=== PATIENT | male | born 1950 | race Caucasian/White ===

== ENCOUNTER 2020-05-14 16:26 | Inpatient (IN) | payer MEDICARE, OTHER ==
--- NOTE | 2020-05-14 17:07 | ED ---
Chest Pain HPI - General Chief Complaint: Chest Pain Stated Complaint: Chest pain Time Seen by Provider: 05/14/20 16:30 Source: patient, family Mode of arrival: ambulatory Limitations: no limitations - History of Present Illness Initial Comments: 70-year-old male past medical history of coronary artery disease status post CABG in 2012 who presents emergency Department with reported shortness of breath and chest discomfort. Patient states he's had chest discomfort with worsening shortness of breath over the past several weeks. He followed up with Dr. Padron in office today which was a normal follow-up visit. He told Dr. Padron his symptoms and he completed an EKG was performed which found that the patient was in A. fib with a rapid ventricular rate. Dr. Padron recommended that he come into the emergency department. He originally refused this and was going to see his primary care doctor tomorrow. He told his daughter about his symptoms and they recommended that he go in today for evaluation. Patient is not on any anticoagulation. No history of irregular heart rhythm. No contraindications to blood thinners. Patient denies history of GI bleed or hemorrhagic stroke. Patient states he was on Coumadin after his bypass surgery and tolerated that just fine. Denies history of DVT or PE. No lower externally swelling. No ripping or tearing sensation to his back. No fevers, chills or cough. Denies any abdominal pain. No other alleviating, precipitating or modifying factors - Related Data Home Medications Medication Instructions Recorded Confirmed Albuterol Inhaler [Ventolin Hfa 2 puff INHALATION RT-Q4H PRN 05/14/20 05/14/20 Inhaler] Atorvastatin [Lipitor] 80 mg PO HS 05/14/20 05/14/20 glipiZIDE XL [Glucotrol XL] 10 mg PO DAILY 05/14/20 05/14/20 lisinopriL [Prinivil] 20 mg PO DAILY 05/14/20 05/14/20 metFORMIN HCL [Glucophage] 1,000 mg PO BID 05/14/20 05/14/20 Previous Rx's Medication Instructions Recorded Apixaban [Eliquis] 5 mg PO BID #60 tab 05/15/20 Aspirin 81 mg PO DAILY #0 05/16/20 Furosemide [Lasix] 40 mg PO DAILY #30 tab 05/16/20 Melatonin 3 mg PO HS #30 tablet 05/16/20 Metoprolol Tartrate [Lopressor] 100 mg PO BID #60 tab 05/16/20 Allergies Allergy/AdvReac Type Severity Reaction Status Date / Time No Known Allergies Allergy Verified 05/14/20 19:37 Review of Systems ROS Statement: Those systems with pertinent positive or pertinent negative responses have been documented in the HPI. ROS Other: All systems not noted in ROS Statement are negative. EKG Findings - EKG Comments: EKG Findings:: EKG demonstrates A. fib with a rapid ventricular rate of 128. PVCs present. QRS 138. QTC of 487. Right bundle branch block present Past Medical History Past Medical History: Hyperlipidemia, Hypertension, Myocardial Infarction ([place]) Last Myocardial Infarction Date:: 2012 History of Any Multi-Drug Resistant Organisms: None Reported Past Surgical History: Coronary Bypass/CABG, Heart Catheterization Past Anesthesia/Blood Transfusion Reactions: No Reported Reaction Past Psychological History: Anxiety Smoking Status: Never smoker Past Alcohol Use History: Occasional Past Drug Use History: None Reported - Past Family History Mother Family Medical History: No Reported History General Exam Limitations: no limitations General appearance: alert, in no apparent distress Head exam: Present: atraumatic, normocephalic, normal inspection Eye exam: Present: normal appearance, PERRL, EOMI. Absent: scleral icterus, conjunctival injection, periorbital swelling ENT exam: Present: normal exam, mucous membranes moist Neck exam: Present: normal inspection. Absent: tenderness, meningismus, lymphadenopathy Respiratory exam: Present: normal lung sounds bilaterally. Absent: respiratory distress, wheezes, rales, rhonchi, stridor Cardiovascular Exam: Present: regular rate, tachycardia, irregular rhythm, normal heart sounds. Absent: systolic murmur, diastolic murmur, rubs, gallop, clicks GI/Abdominal exam: Present: soft, normal bowel sounds. Absent: distended, tenderness, guarding, rebound, rigid Extremities exam: Present: normal inspection, full ROM, normal capillary refill. Absent: tenderness, pedal edema, joint swelling, calf tenderness Back exam: Present: normal inspection Neurological exam: Present: alert, oriented X3, CN II-XII intact Psychiatric exam: Present: normal affect, normal mood Skin exam: Present: warm, dry, intact, normal color. Absent: rash Course Vital Signs 05/14/20 05/14/20 05/14/20 16:28 17:06 18:15 Temperature 98.9 F Pulse Rate 88 125 H Pulse Rate [ 138 H Tip Finisher ] Respiratory 22 18 Rate Blood Pressure 109/70 120/89 O2 Sat by Pulse 97 98 Oximetry 05/14/20 19:31 Temperature Pulse Rate 122 H Pulse Rate [ Tip Finisher ] Respiratory 18 Rate Blood Pressure O2 Sat by Pulse 98 Oximetry Chest Pain MDM - MDM Upon arrival patient the was placed into room 3. A thorough history and physical exam was performed. 12-lead EKG was performed which demonstrates the patient to be in A. fib with rapid ventricular rate. He is hooked up to continuous pulse ox and cardiac monitoring. IV is established. Laboratory studies were conducted and the patient went for chest x-ray. Laboratory studies are remarkable for a creatinine of 1.3. Magnesium 1.2. Troponin 0.024. Chest x-ray demonstrates mild pleural reaction and fluid. Patient is given 2 g of magnesium. He is initiated on a Cardizem drip with a 10 mg bolus. Patient initiated on heparin drip. Recommended admission. Discussed case with [facility] from [facility] who accepted admission. I will place cardiology on consult. Patient remained in stable condition and was transported to the floor Disposition Clinical Impression: Chest pain, New onset a-fib Disposition: ADMITTED IP TO THIS HOSP Condition: Stable Is patient prescribed a controlled substance at d/c from ED?: No Decision to Admit Reason: Admit from EC Decision Date: 05/14/20 Decision Time: 18:41
[2020-05-14 17:14] LABS: Basophils % (A) 0 %; Eosinophils # (A) 0.1 k/uL (0-0.7); Eosinophils % (A) 1 %; HCT 38.3 % (39.0-53.0); HGB 12.6 gm/dL (13.0-17.5); Lymphocytes # (A) 1.8 k/uL (1.0-4.8); Lymphocytes % (A) 21 %; MCH 30.4 pg (25.0-35.0); MCV 92.2 fL (80.0-100.0); Mean Platelet Volume 7.3; Monocytes # (A) 0.5 k/uL (0-1.0); Monocytes % (A) 6 %; Neutrophils # (A) 6.4 k/uL (1.3-7.7); Neutrophils % (A) 71 %; Platelet Count 163 k/uL (150-450); RBC 4.16 m/uL (4.30-5.90); RDW 13.7 % (11.5-15.5)
[2020-05-14 17:28] LABS: INR 1.1 (<1.2); Partial Thromboplastin Time 26.1 sec (22.0-30.0)
[2020-05-14 17:36] LABS: Albumin 4.5 g/dL (3.5-5.0); Calcium 9.3 mg/dL (8.4-10.2); Magnesium 1.2 mg/dL (1.6-2.3); Potassium 4.4 mmol/L (3.5-5.1); Total Bilirubin 1.7 mg/dL (0.2-1.3); Total Protein 7.5 g/dL (6.3-8.2)
--- NOTE | 2020-05-14 17:44 | XR ---
EXAMINATION TYPE: XR chest 2V DATE OF EXAM: 05/14/2020 COMPARISON: 08/20/2012 HISTORY: Chest tightness and short of breath TECHNIQUE: 2 views FINDINGS: Heart is enlarged. There is slight blunting of the costophrenic angles. There are sternal w ires. There is some coarsening the lung markings at the lung bases. There are no hilar masses. There is mild pulmonary congestion. IMPRESSION: There is mild pleural reaction and fluid and interstitial density at the lung bases that is improved compared to old exam. Cardiomegaly unchanged. There is mild heart failure.
[2020-05-14] MEDS ORDERED: DILTIAZEM DRIP BOLUS FROM BAG 1 MG SOLN IV ONE (18:03)
[2020-05-14] MEDS ORDERED: HEPARIN SODIUM,PORCINE 5,000 UNIT/ML 1 ML VIAL IV PRN (18:05)
[2020-05-14] MEDS ORDERED: HEPARIN SODIUM,PORCINE 5,000 UNIT/ML 1 ML VIAL IV ONE (18:05)
[2020-05-14] MEDS ORDERED: DILTIAZEM 125 MG in SODIUM CHLORIDE 0.9% 100 ML IV SCH (18:15)
[2020-05-14] MEDS ORDERED: HEPARIN SOD,PORK IN 0.45% NACL 25,000 UNIT in 0.45% NACL 1 250ML.BAG IV SCH (18:15)
[2020-05-14] MEDS: MAGNESIUM SULFATE-D5W PMX 1 GM in DEXTROSE/WATER 1 100ML.BAG IVPB SCH ×2 (18:18→20:25)
[2020-05-14] MEDS ORDERED: NALOXONE 0.4 MG/ML 1 ML VIAL IV PRN (18:41)
[2020-05-14] MEDS ORDERED: ALBUTEROL NEBULIZED 2.5 MG/3 ML INHALATION PRN (20:30)
[2020-05-14 20:46] LABS: Glucose,Whole Blood 116 mg/dL (75-99)
[2020-05-14] MEDS: INSULIN ASPART (NovoLOG) 100 UNIT/ML VIAL SQ SCH (21:30)
[2020-05-14] MEDS: METOPROLOL TARTRATE 50 MG TAB PO SCH (21:34)
[2020-05-14] MEDS: ATORVASTATIN 80 MG TAB PO SCH (21:34)
[2020-05-14] MEDS ORDERED: SODIUM CHLORIDE 0.65% NASAL SPRAY 44 ML BTL NASAL PRN (22:05)
[2020-05-14] MEDS: FLUTICASONE 50MCG/SPRAY NASAL 16GM EA NOSTRIL SCH (22:45)
[2020-05-15 06:25] LABS: Glucose,Whole Blood 119 mg/dL (75-99)
[2020-05-15] MEDS: INSULIN ASPART (NovoLOG) 100 UNIT/ML VIAL SQ SCH ×4 (06:26→20:52)
[2020-05-15 07:43] LABS: Basophils # (A) 0.1 k/uL (0-0.2); Basophils % (A) 1 %; Eosinophils # (A) 0.1 k/uL (0-0.7); Eosinophils % (A) 2 %; HCT 39.6 % (39.0-53.0); HGB 12.7 gm/dL (13.0-17.5); Hypochromasia Moderate; Lymphocytes # (A) 2.1 k/uL (1.0-4.8); Lymphocytes % (A) 30 %; MCH 30.8 pg (25.0-35.0); MCHC 32.1 g/dL (31.0-37.0); Mean Platelet Volume 7.6; Monocytes # (A) 0.5 k/uL (0-1.0); Monocytes % (A) 7 %; Neutrophils % (A) 57 %; Platelet Count 124 k/uL (150-450); RBC 4.13 m/uL (4.30-5.90); RDW 13.3 % (11.5-15.5)
[2020-05-15] MEDS: METOPROLOL TARTRATE 50 MG TAB PO SCH (07:56)
[2020-05-15] MEDS: glipiZIDE 5 MG TAB PO SCH ×2 (07:56→20:52)
[2020-05-15] MEDS: lisinopriL 20 MG TAB PO SCH (07:57)
[2020-05-15 07:58] LABS: Calcium 8.9 mg/dL (8.4-10.2); Magnesium 1.7 mg/dL (1.6-2.3); Potassium 4.3 mmol/L (3.5-5.1)
[2020-05-15] MEDS: FLUTICASONE 50MCG/SPRAY NASAL 16GM EA NOSTRIL SCH ×2 (07:58→20:44)
[2020-05-15 08:27] LABS: INR 1.1 (<1.2); Prothrombin Time 11.8 sec (9.0-12.0)
[2020-05-15] MEDS ORDERED: ASPIRIN 81 MG PO SCH (09:00)
[2020-05-15] MEDS ORDERED: METOPROLOL TARTRATE 25 MG TAB PO STA (09:04)
[2020-05-15] MEDS: APIXABAN 5 MG TAB PO SCH ×2 (09:20→20:52)
[2020-05-15] MEDS ORDERED: FUROSEMIDE 20 MG TAB PO SCH (10:45)
[2020-05-15 11:29] LABS: Glucose,Whole Blood 170 mg/dL (75-99)
--- NOTE | 2020-05-15 13:01 | P.CRDCN ---
History of Present Illness History of present illness: HISTORY OF PRESENTING ILLNESS This is a pleasant 70-year-old male past medical history significant for coronary artery disease status post 3V bypass grafting 2013 DRAKE to LAD, SVG to OM1, OM3 and RCA, dyslipidemia, hypertension and diabetes mellitus. He follows in the office with Dr. Padron. We have been asked to see in consultation for atrial fibrillation. He states approximately 2 weeks ago he was diagnosed with acute bronchitis per his PCP and was initiated on steroids. He had been improving over the previous few days. He had no significant symptoms of shortness of breath. He went to see Dr. Dr. Padron yesterday for regular follow-up visit and he was noted to be dyspneic and tachycardic. An EKG was obtained revealing atrial fibrillation with rapid ventricular rate. He was sent to the hospital for further evaluation. EKG on arrival to the hospital revealed atrial fibrillation with underlying right bundle branch block heart rate 128, chest x-ray revealed mild pleural reaction and fluid with interstitial density at the lung bases improved from previous exam. Telemetry tracings reveal persistent atrial fibrillation with variable ventricular rates. Laboratory data reviewed, WBC 7, hemoglobin 12.7, platelets 124, sodium 137, potassium 4.3, creatinine 1.04, magnesium on admission was 1. 2 repeat after supplementation 1.7, troponin negative 3 and TSH 4.05. Currently maintained on IV Cardizem and heparin infusions. Daily at home medications include lisinopril 20 mg daily, atorvastatin 80 mg daily and Lopressor 50 mg twice a day. Most re cent echocardiogram obtained in the office October 2019 revealed reserved LV systolic function with ejection fraction 50%, grade 2 diastolic dysfunction, mild aortic regurgitation, mild tricuspid regurgitation and mild pulmonary hypertension. He is seen and examined sitting up in the chair in no acute distress. He denies symptoms of chest pain or palpitations. He denies any significant shortness of breath. He does have lower extremity edema that is somewhat significant however he claims this is chronic. REVIEW OF SYSTEMS At the time of my exam: CONSTITUTIONAL: Denies fever or chills. CARDIOVASCULAR: Denies chest pain, shortness of breath, orthopnea, PND or palpitations. RESPIRATORY: Denies cough. GASTROINTESTINAL: Denies abdominal pain, diarrhea, constipation, nausea or vomiting. MUSCULOSKELETAL: Denies myalgias. NEUROLOGIC: Denies numbness, tingling, headacbe or weakness. ENDOCRINE: Denies fatigue, weight change, polydipsia or polyurina. GENITOURINARY: Denies burning, hematuria or urgency with micturation. HEMATOLOGIC: Denies history of anemia or bleeding. PHYSICAL EXAMINATION Blood pressure 113/72 heart rate 101 afebrile and maintaining oxygen saturation on room air. CONSTITUTIONAL: No apparent distress. HEENT: Head is normocephalic. Pupils are equal, round. Sclerae anicteric. Mucous membranes of the mouth are moist. No JVD. No carotid bruit. CHEST EXAMINATION: Lungs are clear to auscultation. No chest wall tenderness is noted on palpation or with deep breathing. HEART EXAMINATION: Irregular rate and rhythm. S1, S2 heard. No murmurs, gallops or rub. ABDOMEN: Soft, nontender. Positive bowel sounds. EXTREMITIES: 2+ peripheral pulses, 2+ bilateral lower extremity pitting edema and no calf tenderness. NEUROLOGIC EXAMINATION: Patient is awake, alert and oriented x3. ASSESSMENT New onset paroxysmal atrial fibrillation with rapid ventricular rate Chronic diastolic heart failure Coronary artery disease status post bypass grafting Hypertension Dyslipidemia Diabetes mellitus PLAN Discontinue Cardizem infusion and increase Lopressor to 75 mg twice a day. Initiate Eliquis 5 mg twice a day for thromboembolic protection. We will ask the corrections caseworker to check his monthly cost. Add small dose of Lasix 20 mg by mouth daily. Obtain 2-D echocardiogram and Doppler study to assess cardiac structure and function. Ongoing telemetry monitoring, if heart rates remained controlled on oral he can possibly be discharged tomorrow. Thank you kindly for this consultation. Nurse Practitioner note has been reviewed, I agree with a documented findings and plan of care. Patient was seen and examined. Past Medical History Past Medical History: Hyperlipidemia, Hypertension, Myocardial Infarction ([place]) Last Myocardial Infarction Date:: 2012 History of Any Multi-Drug Resistant Organisms: None Reported Past Surgical History: Coronary Bypass/CABG, Heart Catheterization Past Anesthesia/Blood Transfusion Reactions: No Reported Reaction Past Psychological History: Anxiety Smoking Status: Never smoker Past Alcohol Use History: Occasional Past Drug Use History: None Reported - Past Family History Mother Family Medical History: No Reported History Medications and Allergies Home Medications Medication Instructions Recorded Confirmed Type Aspirin 162 mg PO DAILY 03/27/15 05/14/20 History Metoprolol Tartrate [Lopressor] 50 mg PO BID 03/27/15 05/14/20 History Albuterol Inhaler [Ventolin Hfa 2 puff INHALATION RT-Q4H PRN 05/14/20 05/14/20 History Inhaler] Atorvastatin [Lipitor] 80 mg PO HS 05/14/20 05/14/20 History glipiZIDE XL [Glucotrol XL] 10 mg PO DAILY 05/14/20 05/14/20 History lisinopriL [Prinivil] 20 mg PO DAILY 05/14/20 05/14/20 History metFORMIN HCL [Glucophage] 1,000 mg PO BID 05/14/20 05/14/20 History Allergies Allergy/AdvReac Type Severity Reaction Status Date / Time No Known Allergies Allergy Verified 05/14/20 19:37 Physical Exam Vitals: Vital Signs Temp Pulse Pulse Resp BP BP Pulse Ox 05/15/20 12:46 101 H 18 05/15/20 11:43 97.6 F 101 H 18 113/72 97 05/15/20 11:37 97.6 F 101 H 18 113/72 97 05/15/20 08:30 101 H 17 05/15/20 08:00 97.9 F 104 H 17 139/91 97 05/15/20 04:00 97.9 F 97 16 118/69 97 05/15/20 02:00 90 18 05/15/20 00:00 98.3 F 90 18 96/66 96 05/14/20 20:00 98.8 F 115 H 18 116/83 97 05/14/20 19:31 122 H 18 98 05/14/20 18:15 125 H 18 120/89 98 05/14/20 17:06 138 H 05/14/20 16:28 98.9 F 88 22 109/70 97 Intake and Output 05/14/20 05/15/20 05/15/20 22:59 06:59 14:59 Intake Total 62.419 780 Balance 62.419 780 Intake: Intake, IV Titration 62.419 Amount Heparin Sod,Pork in 0.45% 62.419 NaCl 25,000 unit In 0.45 % NaCl 1 250ml.bag @ 7.3 UNITS/KG/HR 9.934 mls/hr IV .Q24H [facility] Rx#: [id number] Oral 780 Other: Voiding Method Toilet # Voids 1 Weight 136.078 kg 138.6 kg Results 05/15/20 07:02 05/15/20 07:07 Cardiac Enzymes 05/14/20 05/14/20 05/14/20 Range/Units 16:42 16:42 20:50 AST 28 (17-59) U/L Troponin I 0.024 0.022 (0.000-0.034) ng/mL 05/14/20 Range/Units 23:35 AST (17-59) U/L Troponin I 0.017 (0.000-0.034) ng/mL Coagulation 05/14/20 05/14/20 05/15/20 Range/Units 16:42 23:35 07:38 PT 12.0 11.8 (9.0-12.0) sec APTT 26.1 40.5 H 38.0 H (22.0-30.0) sec CBC 05/14/20 05/15/20 Range/Units 16:42 07:02 WBC 9.0 7.0 (3.8-10.6) k/uL RBC 4.16 L 4.13 L (4.30-5.90) m/uL Hgb 12.6 L 12.7 L (13.0-17.5) gm/dL Hct 38.3 L 39.6 (39.0-53.0) % Plt Count 163 124 L (150-450) k/uL Comprehensive Metabolic Panel 05/14/20 05/15/20 Range/Units 16:42 07:07 Sodium 140 137 (137-145) mmol/L Potassium 4.4 4.3 (3.5-5.1) mmol/L Chloride 105 105 (98-107) mmol/L Carbon Dioxide 18 L 18 L (22-30) mmol/L BUN 22 H 20 (9-20) mg/dL Creatinine 1.32 H 1.04 (0.66-1.25) mg/dL Glucose 120 H 132 H (74-99) mg/dL Calcium 9.3 8.9 (8.4-10.2) mg/dL AST 28 (17-59) U/L ALT 24 (4-49) U/L Alkaline Phosphatase 69 (38-126) U/L Total Protein 7.5 (6.3-8.2) g/dL Albumin 4.5 (3.5-5.0) g/dL Current Medications Generic Name Dose Route Start Last Admin Trade Name Freq PRN Reason Stop Dose Admin Albuterol Sulfate 2.5 mg 05/14/20 20:30 Albuterol Nebulized 2.5 Mg/3 Ml INHALATION RT-Q4H PRN Shortness Of Breath Apixaban 5 mg 05/15/20 09:15 05/15/20 09:20 Apixaban 5 Mg Tab PO 5 mg BID BK Administration Aspirin 81 mg 05/16/20 09:00 Aspirin 81 Mg PO DAILY BK Atorvastatin Calcium 80 mg 05/14/20 21:00 05/14/20 21:34 Atorvastatin 80 Mg Tab PO 80 mg HS [facility] Administration Fluticasone Propionate 2 spray 05/14/20 22:06 05/15/20 07:58 Fluticasone 50mcg/Clarissa Nasal 16gm EA NOSTRIL Not Given BID BK Furosemide 20 mg 05/15/20 10:45 05/15/20 11:44 Furosemide 20 Mg Tab PO 20 mg DAILY BK Administration Glipizide 5 mg 05/15/20 09:00 05/15/20 07:56 Glipizide 5 Mg Tab PO 5 mg BID BK Administration Insulin Aspart 0 unit 05/14/20 21:00 05/15/20 11:59 Insulin Aspart (Novolog) 100 Unit/Ml Vial SQ 2 unit ACHS BK Administration Protocol Lisinopril 20 mg 05/15/20 09:00 05/15/20 07:57 Lisinopril 20 Mg Tab PO 20 mg DAILY BK Administration Melatonin 3 mg 05/15/20 21:00 Melatonin 3 Mg Tablet PO HS [facility] Metoprolol Tartrate 75 mg 05/15/20 21:00 Metoprolol Tartrate 25 Mg Tab PO BID BK Naloxone HCl 0.2 mg 05/14/20 18:41 Naloxone 0.4 Mg/Ml 1 Ml Vial IV Q2M PRN Opioid Reversal Sodium Chloride 2 spray 05/14/20 22:05 Sodium Chloride 0.65% Nasal Clarissa 44 Ml Btl NASAL QID PRN Dry Nasal Passages Intake and Output 05/14/20 05/15/20 05/15/20 22:59 06:59 14:59 Intake Total 62.419 780 Balance 62.419 780 Intake: Intake, IV Titration 62.419 Amount Heparin Sod,Pork in 0.45% 62.419 NaCl 25,000 unit In 0.45 % NaCl 1 250ml.bag @ 7.3 UNITS/KG/HR 9.934 mls/hr IV .Q24H [facility] Rx#: [id number] Oral 780 Other: Voiding Method Toilet # Voids 1 Weight 136.078 kg 138.6 kg 05/15/20 07:02 05/15/20 07:07
[2020-05-15 16:49] LABS: Glucose,Whole Blood 146 mg/dL (75-99)
--- NOTE | 2020-05-15 18:32 | P.HPIM ---
History of Present Illness H&P Date: 05/15/20 Chief Complaint: Irregular rhythm History of presenting complaint: This is a pleasant 70-year-old patient follows by Dr. Chapin. [facility] Dr. Yesenia Giraldo. Chronic stable medical conditions include hypertension, hyperlipidemia, coronary artery disease with bypass over 15 years ago. Patient went over to his cartilage is yesterday for her regular checkup. EKG in the off ice revealed the patient to be in atrial fibrillation with a rapid ventricular rate. Patient was last week treated by his family doctor with steroids for upper respiratory tract infection. Patient is put on IV Cardizem drip. Last echocardiogram in October 2019 from cardiology office showed preserved LV function. Patient denied any palpitations or shortness of breath or chest pain no fever no chills. Review of systems: GEN.: None EYES: None HEENT: None NECK: None RESPIRATORY: None CARDIOVASCULAR: None GASTROINTESTINAL: None GENITOURINARY: None MUSCULOSKELETAL: None LYMPHATICS: None HEMATOLOGICAL: None PSYCHIATRY: None NEUROLOGICAL: None Past medical history to include: Hyperlipidemia, hypertension, coronary artery disease with bypass, anxiety, claustrophobia, diabetes type 2 Social history: Lives with his girlfriend, retired truck washer. No smoking. Alcohol occasionally. Family history: Reviewed, noncontributory to presentation Physical examination: VITAL SIGNS: 98.9, 138, 18, 120/89, 98% on room air-upon presentation GENERAL: BMI 41.4, sitting up in a chair, not in distress. EYES: Pupils equal. Conjunctiva normal. HEENT: External appearance of nose and ears normal, oral cavity grossly normal. NECK: JVD not raised; masses not palpable. HEART: Heart sounds irregular, mild edema. LUNGS: Respiratory rate normal; clear to auscultation. ABDOMEN: Soft, nontender, liver spleen not palpable, no masses palpable. PSYCH: Alert and oriented x3; mood and affect normal. NEUROLOGICAL: Cranial nerves grossly intact; no facial asymmetry, power and sensation grossly intact. LYMPHATICS: No lymph nodes palpable in the axilla and neck INVESTIGATIONS, reviewed in the clinical context: White count 7 hemoglobin 12.7 platelets 124 potassium 4.3 creatinine 1.04 Coronavirus [PCR]-not detected Troponin I 0.0 24, 0.0 22, 0.0 17 EKG tracing personally reviewed by me shows atrial fibrillation with a right bundle branch block pattern rate of 128 Assessment:-New onset atrial fibrillation uncontrolled, duration unknown -Essential hypertension -Hyperlipidemia -Coronary artery disease with prior history of bypass -Morbid obesity BMI 41.4 -Diabetes mellitus type 2 Plan: Patient was initially started IV Cardizem. Started on Lopressor this morning. Also on eliquis. Accu-Cheks are being followed. Care was discussed with the patient. Patient being followed by: Cardiology Past Medical History Past Medical History: Hyperlipidemia, Hypertension, Myocardial Infarction ([place]) Last Myocardial Infarction Date:: 2012 History of Any Multi-Drug Resistant Organisms: None Reported Past Surgical History: Coronary Bypass/CABG, Heart Catheterization Past Anesthesia/Blood Transfusion Reactions: No Reported Reaction Past Psychological History: Anxiety Smoking Status: Never smoker Past Alcohol Use History: Occasional Past Drug Use History: None Reported - Past Family History Mother Family Medical History: No Reported History Medications and Allergies Home Medications Medication Instructions Recorded Confirmed Type Aspirin 162 mg PO DAILY 03/27/15 05/14/20 History Metoprolol Tartrate [Lopressor] 50 mg PO BID 03/27/15 05/14/20 History Albuterol Inhaler [Ventolin Hfa 2 puff INHALATION RT-Q4H PRN 05/14/20 05/14/20 History Inhaler] Atorvastatin [Lipitor] 80 mg PO HS 05/14/20 05/14/20 History glipiZIDE XL [Glucotrol XL] 10 mg PO DAILY 05/14/20 05/14/20 History lisinopriL [Prinivil] 20 mg PO DAILY 05/14/20 05/14/20 History metFORMIN HCL [Glucophage] 1,000 mg PO BID 05/14/20 05/14/20 History Apixaban [Eliquis] 5 mg PO BID #60 tab 05/15/20 Rx Allergies Allergy/AdvReac Type Severity Reaction Status Date / Time No Known Allergies Allergy Verified 05/14/20 19:37 Physical Exam Vitals: Vital Signs Temp Pulse Pulse Resp BP Pulse Ox 05/15/20 16:00 97.9 F 112 H 18 142/71 95 05/15/20 12:46 101 H 18 05/15/20 11:43 97.6 F 101 H 18 113/72 97 05/15/20 11:37 97.6 F 101 H 18 113/72 97 05/15/20 08:30 101 H 17 05/15/20 08:00 97.9 F 104 H 17 139/91 97 05/15/20 04:00 97.9 F 97 16 118/69 97 05/15/20 02:00 90 18 05/15/20 00:00 98.3 F 90 18 96/66 96 05/14/20 20:00 98.8 F 115 H 18 116/83 97 05/14/20 19:31 122 H 18 98 Intake and Output 05/15/20 05/15/20 05/15/20 06:59 14:59 22:59 Intake Total 62.419 1260 Balance 62.419 1260 Intake: Intake, IV Titration 62.419 Amount Heparin Sod,Pork in 0.45% 62.419 NaCl 25,000 unit In 0.45 % NaCl 1 250ml.bag @ 7.3 UNITS/KG/HR 9.934 mls/hr IV .Q24H [facility] Rx#: [id number] Oral 1260 Other: # Voids 1 Weight 138.6 kg Results CBC & Chem 7: 05/15/20 07:02 05/15/20 07:07 Labs: Abnormal Lab Results - Last 24 Hours (Table) 05/14/20 05/14/20 05/15/20 Range/Units 20:44 23:35 06:23 RBC (4.30-5.90) m/uL Hgb (13.0-17.5) gm/dL Plt Count (150-450) k/uL APTT 40.5 H (22.0-30.0) sec Carbon Dioxide (22-30) mmol/L Glucose (74-99) mg/dL POC Glucose (mg/dL) 116 H 119 H (75-99) mg/dL 05/15/20 05/15/20 05/15/20 Range/Units 07:02 07:07 07:38 RBC 4.13 L (4.30-5.90) m/uL Hgb 12.7 L (13.0-17.5) gm/dL Plt Count 124 L (150-450) k/uL APTT 38.0 H (22.0-30.0) sec Carbon Dioxide 18 L (22-30) mmol/L Glucose 132 H (74-99) mg/dL POC Glucose (mg/dL) (75-99) mg/dL 05/15/20 05/15/20 Range/Units 11:27 16:47 RBC (4.30-5.90) m/uL Hgb (13.0-17.5) gm/dL Plt Count (150-450) k/uL APTT (22.0-30.0) sec Carbon Dioxide (22-30) mmol/L Glucose (74-99) mg/dL POC Glucose (mg/dL) 170 H 146 H (75-99) mg/dL Thrombosis Risk Factor Assmnt - Choose All That Apply Any of the Below Risk Factors Present?: Yes Each Factor Represents 1 point: Acute [place], Obesity (BMI >25) Other Risk Factors: Yes Each Risk Factor Represents 2 Points: Age 61-74 years Thrombosis Risk Factor Assessment Total Risk Factor Score: 4 Thrombosis Risk Factor Assessment Level: Moderate Risk
[2020-05-15 19:17] LABS: Hemoglobin A1C 7.9 % (4.0-6.0)
[2020-05-15 20:26] LABS: Glucose,Whole Blood 173 mg/dL (75-99)
[2020-05-15] MEDS: ATORVASTATIN 80 MG TAB PO SCH (20:51)
[2020-05-15] MEDS ORDERED: MELATONIN 3 MG TABLET PO SCH (21:00)
[2020-05-15] MEDS ORDERED: METOPROLOL TARTRATE 25 MG TAB PO SCH (21:00)
[2020-05-16 06:05] LABS: Glucose,Whole Blood 133 mg/dL (75-99)
[2020-05-16] MEDS: INSULIN ASPART (NovoLOG) 100 UNIT/ML VIAL SQ SCH ×3 (06:14→12:22)
[2020-05-16] MEDS ORDERED: ASPIRIN 81 MG PO SCH (09:00)
--- NOTE | 2020-05-16 09:07 | ECHOF ---
Referral Reason:afib MEASUREMENTS -------- HEIGHT: 182.9 cm WEIGHT: 138.3 kg BP: RVIDd: 3.7 cm (< 3.3) IVSd: 1.3 cm (0.6 - 1.1) LVIDd: 5.9 cm (3.9 - 5.3) LVPWd: 1.7 cm (0.6 - 1.1) IVSs: 1.8 cm LVIDs: 5.4 cm LVPWs: 1.7 cm Ao Diam: 3.0 cm (2.0 - 3.7) MV EXCURSION: 16.557 mm (> 18.000) MV EF SLOPE: 66 mm/s (70 - 150) RAP: 5.00 mmHg RVSP: 22.86 mmHg FINDINGS -------- Atrial fibrillation. Morbid Obesity This was a techncally difficult study with suboptimal views, , Lumason utilized for enhancement of im ages. The left ventricle is mildly dilated. There is borderline concentric left ventricular hypertrophy. Overall left ventricular systolic function is severely impaired with, an EF between 20 - 25 %. The right ventricle is normal in size. Normal LA size by volume 22+/-6 ml/m2. The right atrial size is normal. 5.0mg OF Lumason UTLIZED: 2 OR MORE WALL SEGMENTS NOT VISUALIZED. The aortic valve was not well visualized. Mild mitral regurgitation is present. Mild tricuspid regurgitation present. Right ventricular systolic pressure is normal at < 35 mmHg. The pulmonic valve was not well visualized. The aortic root size is normal. There is no pericardial effusion. CONCLUSIONS -------- 1. Morbid Obesity 2. This was a techncally difficult study with suboptimal views, , Lumason utilized for enhancement of images. 3. The left ventricle is mildly dilated. 4. There is borderline concentric left ventricular hypertrophy. 5. Overall left ventricular systolic function is severely impaired with, an EF between 20 - 25 %. 6. The right ventricle is normal in size. 7. Normal LA size by volume 22+/-6 ml/m2. 8. The right atrial size is normal. 9. 5.0mg OF Lumason UTLIZED: 2 OR MORE WALL SEGMENTS NOT VISUALIZED. 10. The aortic valve was not well visualized. 11. Mild mitral regurgitation is present. 12. Mild tricuspid regurgitation present. 13. The pulmonic valve was not well visualized. 14. The aortic root size is normal. 15. There is no pericardial effusion. [employer] SUPERINTENDENT: Krystyna Clay RDCS
[2020-05-16 09:10] LABS: INR 1.2 (<1.2); Prothrombin Time 12.1 sec (9.0-12.0)
[2020-05-16] MEDS ORDERED: METOPROLOL TARTRATE 50 MG TAB PO SCH (09:15)
[2020-05-16] MEDS: APIXABAN 5 MG TAB PO SCH (09:15)
[2020-05-16] MEDS ORDERED: FUROSEMIDE 40 MG TAB PO SCH (09:15)
[2020-05-16] MEDS: FLUTICASONE 50MCG/SPRAY NASAL 16GM EA NOSTRIL SCH (09:15)
[2020-05-16] MEDS: lisinopriL 20 MG TAB PO SCH (09:15)
[2020-05-16] MEDS: glipiZIDE 5 MG TAB PO SCH (09:15)
[2020-05-16 09:44] LABS: Basophils % (A) 1 %; Eosinophils # (A) 0.1 k/uL (0-0.7); Eosinophils % (A) 2 %; HGB 11.9 gm/dL (13.0-17.5); Hypochromasia Slight; Lymphocytes # (A) 1.1 k/uL (1.0-4.8); Lymphocytes % (A) 26 %; MCH 30.4 pg (25.0-35.0); MCHC 32.2 g/dL (31.0-37.0); MCV 94.3 fL (80.0-100.0); Mean Platelet Volume 7.3; Monocytes # (A) 0.2 k/uL (0-1.0); Monocytes % (A) 6 %; Neutrophils # (A) 2.7 k/uL (1.3-7.7); Neutrophils % (A) 63 %; Platelet Count 121 k/uL (150-450); RBC 3.93 m/uL (4.30-5.90); RDW 13.5 % (11.5-15.5); WBC 4.3 k/uL (3.8-10.6)
[2020-05-16 11:50] LABS: Glucose,Whole Blood 192 mg/dL (75-99)
[2020-05-16 12:40] VITALS: BP 108/81; PULSE 120; RESP 16; TEMP 98.2
--- NOTE | 2020-05-16 16:17 | P.PN ---
Subjective Patient looks comfortable. His sitting in the chair no chest discomfort no dizziness lightheadedness or palpitations. He appears tachycardic heart rates 110 beats a minute On examination he is afebrile 98.1F Pulse rate 110 beats a minute Blood pressure 122 95 mmHg Lungs sounds are normal no rhonchi no crackles Heart sounds are tachycardic no S3 gallop no murmurs Abdomen soft Abdomen soft nontender Bilateral lower extremity edema 2-3+ Impression Atrial fibrillation with RVR Increase metoprolol today 200 mg twice daily Continue Lasix 40 mg daily Continue ELIQUIS 5 mg twice daily The patient may go home later this evening once his heart rates are better controlled and follow-up with Dr. Padron Objective - Vital Signs Vital signs: Vital Signs Temp 98.2 F 05/16/20 12:39 Pulse 120 H 05/16/20 12:39 Resp 16 05/16/20 12:39 BP 108/81 05/16/20 12:39 Pulse Ox 97 05/16/20 12:39 Intake & Output 05/15/20 05/16/20 05/16/20 18:59 06:59 18:59 Intake Total 2580 1320 Balance 2580 1320 Weight 137.4 kg Intake: Oral 2580 1320 Other: Voiding Method Toilet Toilet # Voids 2 2 1 - Labs CBC & Chem 7: 05/16/20 08:07 05/15/20 07:07 Labs: Abnormal Lab Results - Last 24 Hours (Table) 05/15/20 05/15/20 05/15/20 Range/Units 07:02 16:47 20:24 RBC (4.30-5.90) m/uL Hgb (13.0-17.5) gm/dL Hct (39.0-53.0) % Plt Count (150-450) k/uL PT (9.0-12.0) sec INR (<1.2) POC Glucose (mg/dL) 146 H 173 H (75-99) mg/dL Hemoglobin A1c 7.9 H (4.0-6.0) % 05/16/20 05/16/20 05/16/20 Range/Units 06:03 08:07 08:07 RBC 3.93 L (4.30-5.90) m/uL Hgb 11.9 L (13.0-17.5) gm/dL Hct 37.0 L (39.0-53.0) % Plt Count 121 L (150-450) k/uL PT 12.1 H (9.0-12.0) sec INR 1.2 H (<1.2) POC Glucose (mg/dL) 133 H (75-99) mg/dL Hemoglobin A1c (4.0-6.0) % 05/16/20 Range/Units 11:49 RBC (4.30-5.90) m/uL Hgb (13.0-17.5) gm/dL Hct (39.0-53.0) % Plt Count (150-450) k/uL PT (9.0-12.0) sec INR (<1.2) POC Glucose (mg/dL) 192 H (75-99) mg/dL Hemoglobin A1c (4.0-6.0) %
--- NOTE | 2020-05-17 18:46 | P.DS ---
Providers Date of admission: 05/14/20 18:41 Expected date of discharge: 05/16/20 Attending physician: Jerardo Hoffmann Consults: 05/14/20 18:42 Consult Physician Urgent Consulting Provider: Bandar Padron Consult Reason/Comments: new onset afib, hx ascad with cabg Do you want consulting provider notified?: Yes Primary care physician: [facility] Course: Chief Complaint: Irregular rhythm History of presenting complaint: This is a pleasant 70-year-old patient follows by Dr. Chapin. Hoistman Dr. Yesenia Cooley.. Chronic stable medical conditions include hypertension, hyperlipidemia, coronary artery disease with bypass over 15 years ago. Patient went over to his cooperative extension agent yesterday for regular checkup. EKG in the office revealed the patient to be in atrial fibrillation with a rapid ventricular rate. Patient was last week treated by his family doctor with steroids for upper respiratory tract infection. Patient is put on IV Cardizem drip. Initially put on a Cardizem drip. Then beta blockers were begun. Today-this morning metoprolol dose was increased to 200 mg twice a day by cardiology. Heart rate and about 1 teens okay to be cleared by cardiology. Also put on Lasix and eliquis. Discussed with the patient. EF 20-25%. No follow-up with cartilage and outpatient. Typewriter Tester: Hoistman: Dr. Parish Cronin Past medical history to include: Hyperlipidemia, hypertension, coronary artery disease with bypass, anxiety, claustrophobia, diabetes type 2 Social history: Lives with his girlfriend, retired trash truck driver. No smoking. Alcohol occasionally. Family history: Reviewed, noncontributory to presentation Physical examination: VITAL SIGNS: 98.2, 120, 16, 108/81, 97% room air GENERAL: BMI 41.4, sitting up in a chair, not in distress. EYES: Pupils equal. Conjunctiva normal. HEENT: External appearance of nose and ears normal, oral cavity grossly normal. NECK: JVD not raised; masses not palpable. HEART: Heart sounds irregular, mild edema. LUNGS: Respiratory rate normal; clear to auscultation. ABDOMEN: Soft, nontender, liver spleen not palpable, no masses palpable. PSYCH: Alert and oriented x3; mood and affect normal. INVESTIGATIONS, reviewed in the clinical context: Hemoglobin 11.9 White count 7 hemoglobin 12.7 platelets 124 potassium 4.3 creatinine 1.04 Coronavirus [PCR]-not detected Troponin I 0.0 24, 0.0 22, 0.0 17 EKG tracing personally reviewed by me shows atrial fibrillation with a right bundle branch block pattern rate of 128 2-D echocardiogram-EF 20-25%. Assessment: -New onset atrial fibrillation uncontrolled, -Essential hypertension -Hyperlipidemia -Coronary artery disease with prior history of bypass -Morbid obesity BMI 41.4 -Diabetes mellitus type 2 Disposition: Home Patient Condition at Discharge: Stable Plan - Discharge Summary Discharge Rx Participant: No New Discharge Prescriptions: New Apixaban [Eliquis] 5 mg PO BID #60 tab Furosemide [Lasix] 40 mg PO DAILY #30 tab Metoprolol Tartrate [Lopressor] 100 mg PO BID #60 tab Melatonin 3 mg PO HS #30 tablet Continue lisinopriL [Prinivil] 20 mg PO DAILY glipiZIDE XL [Glucotrol XL] 10 mg PO DAILY Atorvastatin [Lipitor] 80 mg PO HS Albuterol Inhaler [Ventolin Hfa Inhaler] 2 puff INHALATION RT-Q4H PRN PRN Reason: Shortness Of Breath metFORMIN HCL [Glucophage] 1,000 mg PO BID Changed Aspirin 81 mg PO DAILY #0 Discontinued Metoprolol Tartrate [Lopressor] 50 mg PO BID Discharge Medication List Albuterol Inhaler [Ventolin Hfa Inhaler] 2 puff INHALATION RT-Q4H PRN 05/14/20 [History] Atorvastatin [Lipitor] 80 mg PO HS 05/14/20 [History] glipiZIDE XL [Glucotrol XL] 10 mg PO DAILY 05/14/20 [History] lisinopriL [Prinivil] 20 mg PO DAILY 05/14/20 [History] metFORMIN HCL [Glucophage] 1,000 mg PO BID 05/14/20 [History] Apixaban [Eliquis] 5 mg PO BID #60 tab 05/15/20 [Rx] Aspirin 81 mg PO DAILY #0 05/16/20 [Rx] Furosemide [Lasix] 40 mg PO DAILY #30 tab 05/16/20 [Rx] Melatonin 3 mg PO HS #30 tablet 05/16/20 [Rx] Metoprolol Tartrate [Lopressor] 100 mg PO BID #60 tab 05/16/20 [Rx] Follow up Appointment(s)/Referral(s): Jony Chapin DO [Primary Care Provider] - 1-2 days Bandar Padron MD [STAFF PHYSICIAN] - 05/28/20 2:30 pm Patient Instructions/Handouts: A-fib (Atrial Fibrillation) (DC) Activity/Diet/Wound Care/Special Instructions: bmp - 3 days Discharge Disposition: HOME SELF-CARE
== END 2020-05-16 15:30 | disposition home or self-care (01) | DRG 309 ==
LOC: EC 16:26 → 3SCARD 18:41
PROVIDERS: ADMIT Hospitalist; ATTEND Hospitalist
DX: I48.19 Other persistent atrial fibrillation (principal); Z68.41 Body mass index [BMI] 40.0-44.9, adult; I50.32 Chronic diastolic (congestive) heart failure; I27.20 Pulmonary hypertension, unspecified; I45.10 Unspecified right bundle-branch block; I11.0 Hypertensive heart disease with heart failure; I25.10 Atherosclerotic heart disease of native coronary artery without angina pectoris; Z20.822 Contact with and (suspected) exposure to COVID-19; E78.5 Hyperlipidemia, unspecified; F41.9 Anxiety disorder, unspecified; E66.01 Morbid (severe) obesity due to excess calories; E11.9 Type 2 diabetes mellitus without complications; Z95.1 Presence of aortocoronary bypass graft; Z79.899 Other long term (current) drug therapy; Z79.84 Long term (current) use of oral hypoglycemic drugs; Z79.82 Long term (current) use of aspirin; Z79.01 Long term (current) use of anticoagulants; I25.2 Old myocardial infarction
CPT/HCPCS: 36415; 71046; 80048; 80053; 83036; 83735; 84443; 84484; 85025; 85610; 85730; 87635; 93005; 93306; 96365; 96368; 96376; 99285

== ENCOUNTER 2020-12-30 16:55 | Emergency (ER) | payer MEDICARE, OTHER ==
--- NOTE | 2020-12-30 17:08 | ED ---
CPR HPI - General Stated Complaint: cardiac arrest - History of Present Illness Initial Comments: This is a 70-year-old male with a history of CAD, A. fib, CABG who presents emergency department for cardiac arrest. Per EMS the patient was unloading a trailer when he suddenly collapsed. They arrived there around 4:10 PM. CPR was in process at that time. The patient was resuscitated and found to be in V. fib arrest. He had approximate 7 defibrillations, 7 epinephrine, 300 mg of amiodarone, 4 of magnesium. By the time the patient arrived to the emergency department he had been coding for proximally 45 minutes without return of spontaneous circulation. Resuscitation was continued at this time. Gregory airway was in place. Intubation was attempted by the EMT however was unsuccessful secondary to anatomy. There is question of the patient had oral cancer. Patient seemed to be getting adequate breaths and breath sounds were equal when I auscultated so airway was left in place at this time. - Related Data Home Medications Medication Instructions Recorded Confirmed Albuterol Inhaler [Ventolin Hfa 2 puff INHALATION RT-Q4H PRN 05/14/20 05/14/20 Inhaler] Atorvastatin [Lipitor] 80 mg PO HS 05/14/20 05/14/20 glipiZIDE XL [Glucotrol XL] 10 mg PO DAILY 05/14/20 05/14/20 lisinopriL [Prinivil] 20 mg PO DAILY 05/14/20 05/14/20 metFORMIN HCL [Glucophage] 1,000 mg PO BID 05/14/20 05/14/20 Previous Rx's Medication Instructions Recorded Apixaban [Eliquis] 5 mg PO BID #60 tab 05/15/20 Aspirin 81 mg PO DAILY #0 05/16/20 Furosemide [Lasix] 40 mg PO DAILY #30 tab 05/16/20 Melatonin 3 mg PO HS #30 tablet 05/16/20 Metoprolol Tartrate [Lopressor] 100 mg PO BID #60 tab 05/16/20 Allergies Allergy/AdvReac Type Severity Reaction Status Date / Time No Known Allergies Allergy Verified 05/14/20 19:37 Review of Systems ROS Statement: Those systems with pertinent positive or pertinent negative responses have been documented in the HPI. ROS Other: All systems not noted in ROS Statement are negative. Past Medical History Past Medical History: Hyperlipidemia, Hypertension, Myocardial Infarction (MS) Last Myocardial Infarction Date:: 2012 History of Any Multi-Drug Resistant Organisms: None Reported Past Surgical History: Coronary Bypass/CABG, Heart Catheterization Past Anesthesia/Blood Transfusion Reactions: No Reported Reaction Past Psychological History: Anxiety Smoking Status: Never smoker Past Alcohol Use History: Occasional Past Drug Use History: None Reported - Past Family History Mother Family Medical History: No Reported History General Exam - General Exam Comments Initial Comments: Constitutional: Unconscious, unresponsive Head: [Normocephalic atraumatic] Eyes: [no conjunctival injection] [No scleral icterus] , pupils are fixed and dilated Neck: [No JVD] [Supple] Heart: No heart sounds auscultated Lungs: [Clear to auscultation bilaterally] [No wheezing] [No rales] Abdomen: [Soft] [nondistended] Extremities: [Non edematous] Neuro: Unresponsive, no response painful stimuli, pupils are fixed and dilated Medical Decision Making - Medical Decision Making Is a 70-year-old male who presents emergency department for cardiac arrest. The patient had undergone ACLS for approximately 45 minutes prior to arrival. The patient was in ventricular fibrillation on arrival. He was given 2 defibrillations and given 150 mg of amiodarone. He was given multiple doses of epinephrine as well. Sodium bicarb and calcium chloride were also given to the patient. He didn't not come out of ventricular fibrillation. The code was continued for approximately 20 more minutes and due to utility of any meaningful recovery decision was made by the teen to stop the resuscitation the patient was pronounced at 1706. I spoke with the family and they were updated. supervisory examiner was contacted and the patient's primary doctor, Dr. Chapin was also notified. Disposition Clinical Impression: Cardiac arrest Disposition: Referrals: None,Stated [Primary Care Provider] - 1-2 days Preliminary Cause of : Cardiac Arrest
== END 2020-12-30 21:18 | disposition expired ==
LOC: EC 16:55
DX: I46.9 Cardiac arrest, cause unspecified (principal); I10 Essential (primary) hypertension; E78.5 Hyperlipidemia, unspecified; I25.2 Old myocardial infarction; F41.9 Anxiety disorder, unspecified; Z79.01 Long term (current) use of anticoagulants; Z79.82 Long term (current) use of aspirin; Z79.84 Long term (current) use of oral hypoglycemic drugs; Z95.1 Presence of aortocoronary bypass graft
CPT/HCPCS: 99285